=== PATIENT | female | born 1980 | race Caucasian/White ===

== ENCOUNTER 2017-11-24 12:57 | Emergency (ER) | payer OTHER ==
[2017-11-24 13:40] LABS: URINE BLOOD (Dip) POC Negative (NEGATIVE); URINE GLUCOSE (Dip) POC Negative (NEGATIVE); URINE KETONES (Dip) POC Negative (NEGATIVE); URINE LEUKOCYTE EST (Dip) POC Negative (NEGATIVE); URINE NITRITE (Dip) POC Negative (NEGATIVE); URINE TOTAL PROTEIN POC Negative (NEGATIVE)
== END 2017-11-24 14:45 | disposition home or self-care (01) ==
LOC: FTE 12:57
DX: M79.2 Neuralgia and neuritis, unspecified (principal); M54.2 Cervicalgia
CPT/HCPCS: 81003; 81025; 93005; 99284-25